=== PATIENT | female | born 1955 | race Caucasian/White ===

== ENCOUNTER 2016-08-28 15:01 | Emergency (ER) | payer OTHER, SELFPAY ==
[~2016-08-28 15:01] MED LIST: EPINEPHrine 1 MG/10 ML Abboject SYRINGE ONE; Sodium Chloride 0.9% 1,000 ML BAG ONE; Sodium Chloride 0.9% 100 ML BAG ONE
[2016-08-28] MEDS ORDERED: Midazolam HCl 10 mg/2 ml Vial ONE ×3 (15:11→15:32)
[2016-08-28 15:35] LABS: Prothrombin Time 13.8 SEC (12.0-14.7)
[2016-08-28 15:36] LABS: PTT 25.8 SEC (22.9-36.1)
[2016-08-28 15:39] LABS: ALT (SGPT) 102 U/L (0-55); AST (SGOT) 104 U/L (5-34); Albumin 3.6 g/dL (3.4-4.8); Alkaline Phosphatase 119 U/L (40-150); Anion Gap 16 mmol/L (10-20); BUN (Urea Nitrogen) 6 mg/dL (9.8-20.1); Bilirubin, Total 0.4 mg/dL (0.2-1.2); Calc. Creatinine Clearance 0 mL/min (70-130); Calcium 8.5 mg/dL (7.8-10.44); Carbon Dioxide 34 mmol/L (23-31); Chloride 98 mmol/L (98-107); Estimated GFR-MDRD 51; Globulin 3.1 g/dL (2.4-3.5); Glucose 170 mg/dL (80-115); Potassium 5.3 mmol/L (3.5-5.1); Protein, Total 6.7 g/dL (5.8-8.1); Sodium 143 mmol/L (136-145)
[2016-08-28 15:41] LABS: Band 4 % (5-11); Eosinophils 3 % (0-10); Lymphocytes 17 % (21-51); MDiff Complete? YES; Mean Corpuscular HGB CONC 32.4 g/dL (32.0-36.0); Mean Corpuscular Hemoglobin 33.5 pg (27.0-31.0); Mean Corpuscular Volume 103.3 fl (81.0-99.0); Monocytes 10 % (0-10); Neutrophil 66 % (42-75); PLT Morphology Comment Appears Adequate; Platelet Count 313 thou/uL (130-400); RBC Distribution Width 13.5 % (11.5-14.5); Red Blood Cell (RBC) Count 3.59 mill/uL (4.20-5.40); Troponin I 0.054 ng/mL (< 0.028); White Blood Cell (WBC) Count 22.1 thou/uL (4.8-10.8)
[2016-08-28] MEDS ORDERED: Albuterol Sulfate 2.5 mg/0.5 ml Neb ONE ×2 (15:58→16:11)
--- NOTE | 2016-08-28 16:07 | RAD ---
PORTABLE CHEST 1 VIEW: DATE: 08/28/16. TIME: 2:45 p.m. HISTORY: Altered mental status and respiratory failure. FINDINGS/IMPRESSION: The left lung base has been excluded from the film. The heart size is normal. There is an endotrac heal tube with tip just below the level of the clavicular heads. No confluent areas of consolidatio n, pneumothoraces, or large right-sided pleural effusion is seen. POS: OFF
--- NOTE | 2016-08-29 07:42 | CT ---
CT BRAIN WITHOUT CONTRAST: HISTORY: Altered mental status, unresponsive. FINDINGS: No evidence of acute infarct, hemorrhage, midline shift, or abnormal extraaxial fluid collections ar e seen. The ventricular size is normal and the basilar cisterns patent. The bony calvarium is inta ct. The visualized paranasal sinuses and mastoid air cells are well aerated. IMPRESSION: No CT evidence of acute intracranial process. POS: OFF
== END 2016-08-28 16:10 | disposition short-term general hospital (02) ==
LOC: MADERS 15:01
DX: J96.00 Acute respiratory failure, unspecified whether with hypoxia or hypercapnia (principal)
CPT/HCPCS: 70450; 71010; 80053; 82553; 83735; 84484; 85025; 85610; 85730; 96374; 96375; 96376; J0171; J2250; J7050; J7611

== ENCOUNTER 2016-09-12 02:42 | Emergency (ER) | payer OTHER, SELFPAY ==
[2016-09-12 03:21] LABS: #Basophils 0.1 thou/uL (0.0-0.2); #Eosinphils 0.2 thou/uL (0.0-0.7); #Lymphocytes 1.4 thou/uL (1.20-3.40); #Monocytes 1.2 thou/uL (0.11-0.59); #Neutrophils 14.4 thou/uL (1.40-6.50); %Basophils 0.7 % (0.0-1.0); %Eosinophils 1.2 % (0.0-10.0); %Lymphocytes 8.2 % (21.0-51.0); %Monocytes 6.8 % (0.0-10.0); %Neutrophils 83.1 % (42.0-75.0); Hemoglobin 14.5 g/dL (12.0-16.0); Mean Corpuscular HGB CONC 33.7 g/dL (32.0-36.0); Mean Corpuscular Hemoglobin 33.5 pg (27.0-31.0); Mean Corpuscular Volume 99.4 fl (81.0-99.0); Platelet Count 435 thou/uL (130-400); RBC Distribution Width 14.4 % (11.5-14.5); Red Blood Cell (RBC) Count 4.32 mill/uL (4.20-5.40); White Blood Cell (WBC) Count 17.3 thou/uL (4.8-10.8)
[2016-09-12 03:36] LABS: ALT (SGPT) 40 U/L (0-55); AST (SGOT) 23 U/L (5-34); Albumin 3.9 g/dL (3.4-4.8); Alkaline Phosphatase 145 U/L (40-150); Anion Gap 16 mmol/L (10-20); BUN (Urea Nitrogen) 15 mg/dL (9.8-20.1); Bilirubin, Total 0.7 mg/dL (0.2-1.2); Calc. Creatinine Clearance 0 mL/min (70-130); Calcium 9.3 mg/dL (7.8-10.44); Carbon Dioxide 33 mmol/L (23-31); Chloride 92 mmol/L (98-107); Estimated GFR-MDRD 81; Globulin 2.4 g/dL (2.4-3.5); Glucose 140 mg/dL (80-115); Potassium 3.8 mmol/L (3.5-5.1); Protein, Total 6.3 g/dL (5.8-8.1); Sodium 137 mmol/L (136-145)
[2016-09-12 03:37] LABS: CKMB 1.9 ng/mL (0-6.6); Troponin I 0.046 ng/mL (< 0.028)
[2016-09-12] MEDS ORDERED: Enoxaparin Sodium 80 MG/0.8 ML SYRINGE ONE (03:58)
--- NOTE | 2016-09-12 08:27 | RAD ---
PORTABLE UPRIGHT FRONTAL CHEST: Date: 09-12-16 Comparison: 08-31-16 History: Chest pain. FINDINGS: Heart and mediastinal contours are within normal limits. Mitral annulus calcification is seen. Atten uation of the bronchopulmonary vasculature suggests upper lobe emphysematous change. No lobar consol idation or alveolar edema. There is mild hazy density in both lung bases, likely on the basis of bod y habitus. Lateral imaging may be beneficial to exclude the possibility of pleural fluid. IMPRESSION: Mild hazy bibasilar density as above. No lobar consolidation or alveolar edema. POS: [facility]
== END 2016-09-12 04:20 | disposition short-term general hospital (02) ==
LOC: MADERS 02:42
DX: I21.4 Non-ST elevation (NSTEMI) myocardial infarction (principal); J44.9 Chronic obstructive pulmonary disease, unspecified; I25.2 Old myocardial infarction; Z87.891 Personal history of nicotine dependence
CPT/HCPCS: 71010; 80053; 82553; 83735; 83880; 84484; 85025; 85730; 93005; 96372; J1650